=== PATIENT | female | born 1940 | race Caucasian/White ===

== ENCOUNTER 2020-12-28 06:27 | Emergency (ER) | payer MEDICARE ==
[2020-12-28] MEDS ORDERED: Lidocaine 1% 20 ML MDV INJECT ONE (07:27)
[2020-12-28] MEDS ORDERED: Acetaminophen 325 MG Tab PO ONE (08:06)
[2020-12-28] MEDS ORDERED: oxyCODONE 5 MG Tab PO ONE (08:11)
[2020-12-28] MEDS ORDERED: Ibuprofen 400 MG Tab PO ONE (08:11)
[2020-12-28 08:17] VITALS: BP 156/85; PULSE 67
--- NOTE | 2020-12-28 08:52 | EDM.PDOC ---
ED HPI GENERAL MEDICAL PROBLEM - General Chief Complaint: Lower Extremity Injury/Pain Stated Complaint: MEDICAL VIA [facility] Time Seen by Provider: 12/28/20 07:15 Source of Information: Reports: Patient History Limitations: Reports: No Limitations - History of Present Illness INITIAL COMMENTS - FREE TEXT/NARRATIVE: This is a 80-year-old female presents with concern of left knee pain. She reports that she spent a lot of time on her hands and knees yesterday cleaning the floors her cabin. She does have a history of osteoarthritis. She woke up overnight with extreme pain in the left knee, it was progressive, to the point where this morning she can no longer ambulate. She has no falls or other trauma. No fevers or chills. No history of gout. No history of DVT. - Related Data Allergies Allergy/AdvReac Type Severity Reaction Status Date / Time omeprazole Allergy Nausea Verified 12/28/20 06:29 Penicillins Allergy Hives Verified 12/28/20 06:29 Home Meds: Home Meds *Propanolol 160 mg PO DAILY 12/19/14 [History] Amitriptyline [Elavil] 10 mg PO BEDTIME 12/19/14 [History] Desoximetasone [Topicort 0.25% Crm] 1 each TRDERM ASDIRECTED PRN 12/19/14 [History] Estradiol 1 mg PO SUTH 12/19/14 [History] Halcinonide [Halog] 1 each TRDERM ASDIRECTED PRN 12/19/14 [History] Hydrocodone/Acetaminophen [[place] 5-325] 1 each PO ASDIRECTED PRN 12/19/14 [History] Isomethept/Dichlphn/Acetaminop [Migragesic MONICA] 1 each PO ASDIRECTED PRN 12/19/14 [History] Rosuvastatin [Crestor] 10 mg PO SUTH 12/19/14 [History] guaiFENesin [Mucinex] 600 mg PO DAILY 12/19/14 [History] Secukinumab [Cosentyx (2 Syringes)] 1 dose SQ ASDIRECTED 12/28/20 [History] oxyCODONE 5 mg PO Q6H PRN #5 tab 12/28/20 [Rx] Past Medical History HEENT History: Reports: Impaired Vision Other HEENT History: septal surgery Other Respiratory History: HAS ONLY 1 FUNCTIONAL VOCAL CORD Gastrointestinal History: Reports: None Other Gastrointestinal History: ABD PAIN Genitourinary History: Reports: None CLINICAL OUTCOMES MANAGER History: Reports: Musculoskeletal History: Reports: Arthritis, Back Pain, Chronic, Fibromyalgia, Other (See Below) Other Musculoskeletal History: Collar bone Neurological History: Reports: Migraines Dermatologic History: Reports: Psoriasis - Infectious Disease History Infectious Disease History: Reports: Chicken Pox, Measles, Mumps - Past Surgical History Head Surgeries/Procedures: Reports: None HEENT Surgical History: Reports: None Respiratory Surgical History: Reports: None GI Surgical History: Reports: Appendectomy, Cholecystectomy Female Surgical History: Reports: Hysterectomy Neurological Surgical History: Reports: None Musculoskeletal Surgical History: Reports: None Dermatological Surgical History: Reports: None Social & Family History - Tobacco Use Tobacco Use Status *Q: Never Tobacco User Second Hand Smoke Exposure: No - Caffeine Use Caffeine Use: Reports: Coffee - Alcohol Use Days Per Week of Alcohol Use: 4 Number of Drinks Per Day: 1 Total Drinks Per Week: 4 - Recreational Drug Use Recreational Drug Use: No Review of Systems - Review of Systems Review Of Systems: See Below Constitutional: Reports: No Symptoms Eyes: Reports: No Symptoms Ears: Reports: No Symptoms Nose: Reports: No Symptoms Mouth/Throat: Reports: No Symptoms Respiratory: Reports: No Symptoms Cardiovascular: Reports: No Symptoms GI/Abdominal: Reports: No Symptoms Genitourinary: Reports: No Symptoms Musculoskeletal: Reports: Other (knee pain) Skin: Reports: No Symptoms Neurological: Reports: No Symptoms Psychiatric: Reports: No Symptoms ED EXAM, GENERAL - Physical Exam Exam: See Below Exam Limited By: No Limitations General Appearance: Alert, No Apparent Distress Ears: Normal External Exam Nose: Normal Inspection Throat/Mouth: Normal Inspection Head: Atraumatic, Normocephalic Neck: Normal Inspection Respiratory/Chest: No Respiratory Distress Cardiovascular: Regular Rate, Rhythm GI/Abdominal: No Distention Back Exam: Normal Inspection Extremities: Other (left knee swollen with effusion, no overlying erythema. No popliteal tenderness) Neurological: Alert, Oriented Psychiatric: Normal Affect, Normal Mood Skin Exam: Warm, Dry ED TRAUMA EXTREMITY PROCEDURES - Additional/Other Procedure(s) Other (Free Text) Procedure(s): Joint aspiration: After obtaining informed consent and easily assessable pocket of synovial fluid was identified by ultrasound. The area was prepped with chlorhexidine. Approximately 3 cc of 1% lidocaine were administered subcutaneously for local anesthetic. A 20-gauge spinal needle was inserted in the medial suprapatellar area, approximately 60 cc of blood-tinged clear fluid was aspirated. Fluid was sent to lab for analysis. Needle was removed and dressing applied. No apparent complication. Course - Vital Signs Last Recorded V/S: Last Vital Signs Temp 36.6 C 12/28/20 06:36 Pulse 67 12/28/20 07:51 Resp 16 12/28/20 06:36 BP 156/85 H 12/28/20 07:51 Pulse Ox 95 12/28/20 07:51 - Orders/Labs/Meds Orders: Active Orders 24 hr Category Date Time Status CELL COUNT,BODY FLUID [BF] Stat Lab 12/28/20 08:02 Results CRYSTAL,SYNOVIAL/JOINT FL Stat Lab 12/28/20 08:02 Received CULTURE BODY FLUID + SMEAR [RM] Stat Lab 12/28/20 08:02 Results Labs: Laboratory Tests 12/28/20 Range/Units 08:02 Fluid Type Synovial fluid Fluid WBC 1600 /ul Fluid RBC 312136 /ul Fluid Mononuclear Cell 98 % Fl Polymorphonucl Cell 2 % Meds: Medications Discontinued Medications Generic Name Dose Route Start Last Admin Trade Name Olivia PRN Reason Stop Dose Admin Acetaminophen 650 mg 12/28/20 08:06 12/28/20 08:19 Acetaminophen 325 Mg Tab PO 12/28/20 08:07 650 mg NOW ONE Administration Ibuprofen 400 mg 12/28/20 08:11 12/28/20 08:18 Ibuprofen 400 Mg Tab PO 12/28/20 08:12 400 mg ONETIME ONE Administration Lidocaine HCl 20 ml 12/28/20 07:27 12/28/20 07:40 Lidocaine 1% 20 Ml Mdv INJECT 12/28/20 07:28 20 ml ONETIME ONE Administration Oxycodone HCl 5 mg 12/28/20 08:11 12/28/20 08:19 Oxycodone 5 Mg Tab PO 12/28/20 08:12 5 mg ONETIME ONE Administration - Re-Assessments/Exams Free Text/Narrative Re-Assessment/Exam: 12/28/20 12:17 80-year-old presents with atraumatic left knee pain. Occurred after being on the floor on her hands and knees cleaning most of yesterday. Has a history of osteoarthritis. On exam she has a swollen left knee without any erythema. Vitals are normal. History is not consistent with a septic arthritis. [id number] ultrasound revealed a sizable joint effusion, this is aspirated as noted. Fluid sent to the lab and white blood cell count is minimally elevated not consistent with a septic joint, crystals are pending. She is safe to treat symptomatically. We discussed Tylenol and ibuprofen as well as as needed oxycodone. She is can use a walker to help with ambulation. She is discharged with her and they feel safe in her home. We discussed return precautions. Primary care follow-up as needed. Departure - Departure Time of Disposition: : Disposition: Home, Self-Care Clinical Impression: Knee effusion, left Osteoarthritis Qualifiers: Osteoarthritis location: knee Osteoarthritis type: unspecified Laterality: left Qualified Code(s): M17.12 - Unilateral primary osteoarthritis, left knee - Discharge Information *PRESCRIPTION DRUG MONITORING PROGRAM REVIEWED*: No *COPY OF PRESCRIPTION DRUG MONITORING REPORT IN PATIENT [place]: No Prescriptions: oxyCODONE 5 mg PO Q6H PRN #5 tab PRN Reason: Pain Instructions: Knee Effusion, Osteoarthritis, What You Need to Know About Osteoarthritis Referrals: PCP,None [Primary Care Provider] - Forms: ED Department Discharge Additional Instructions: As we discussed, we suspect that your knee pain is due to osteoarthritis. This also caused the fluid around your knee. Now that we drained the fluid you should hopefully start to feel better, but you will likely need more time for the inflammation to settle down. Continue to use Tylenol and ibuprofen for your pain. Use a prescription pain medicine in addition to this as needed. Bear weight on the left leg only as tolerated, you do not want to be walking on it if it is causing significant pain. Follow-up with primary doctor if needed, particularly if you have persistent pain after several days. Thank you for trusting us to care for you today. Sepsis Event Note (ED) - Evaluation Sepsis Screening Result: No Definite Risk - Focused Exam Vital Signs: Vital Signs Temp Pulse Resp BP Pulse Ox 12/28/20 07:51 67 156/85 H 95 12/28/20 07:21 62 170/81 H 95 12/28/20 06:51 61 173/96 H 94 L 12/28/20 06:36 36.6 C 64 16 179/94 H 92 L 12/28/20 06:29 36.6 C 64 16 179/94 H 92 L - My Orders Last 24 Hours: My Active Orders 12/28/20 08:02 CELL COUNT,BODY FLUID [BF] Stat CRYSTAL,SYNOVIAL/JOINT FL Stat CULTURE BODY FLUID + SMEAR [RM] Stat - Assessment/Plan Last 24 Hours: My Active Orders 12/28/20 08:02 CELL COUNT,BODY FLUID [BF] Stat CRYSTAL,SYNOVIAL/JOINT FL Stat CULTURE BODY FLUID + SMEAR [RM] Stat
== END 2020-12-28 09:33 | disposition home or self-care (01) ==
LOC: JP.ED 06:27
DX: M17.12 Unilateral primary osteoarthritis, left knee (principal); M25.462 Effusion, left knee; Z88.0 Allergy status to penicillin; Z88.8 Allergy status to other drugs, medicaments and biological substances
CPT/HCPCS: 20610; 87070; 87205; 89050; 89060; 99284; A9270; 99283